=== PATIENT | male | born 1970 | race Caucasian/White ===

== ENCOUNTER 2017-08-31 18:06 | Emergency (ER) | payer OTHER ==
[2017-08-31] MEDS ORDERED: Take Home: Acetaminophen/Codeine 300 MG/30 MG, 5 Tab Pack PO ONE (18:44)
[2017-08-31] MEDS ORDERED: Take Home: Amoxicillin/Clavulanate K 875-125 MG Tab, 2 Tab Pack PO ONE (18:44)
--- NOTE | 2017-08-31 21:26 | EDM.PDOC ---
ED HPI GENERAL MEDICAL PROBLEM - General Chief Complaint: General Time Seen by Provider: 08/31/17 18:30 Source of Information: Reports: Patient History Limitations: Reports: No Limitations - History of Present Illness INITIAL COMMENTS - FREE TEXT/NARRATIVE: Pt. states that he has been experiencing intermittent L upper molar pain for several months. He states that over the past several days, the discomfort has increased in severity. He states he is not experiencing any fever or chills. No weakness. No difficulty swallowing or managing his secretions. 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 [No Known Home Meds] 08/31/17 [History] Past Medical History - Past Health History Medical/Surgical History: Denies Medical/Surgical History Social & Family History - Tobacco Use Smoking Status *Q: Unknown Ever Smoked - Recreational Drug Use Recreational Drug Use: No ED ROS GENERAL - Review of Systems Review Of Systems: Unable To Obtain ED EXAM, GENERAL - Physical Exam Exam: See Below Exam Limited By: No Limitations General Appearance: Alert, WD/WN, No Apparent Distress Ears: Normal External Exam, Normal Canal, Hearing Grossly Normal, Normal TMs Ear Exam: Bilateral Ear: Auricle Normal, Canal Normal, TM normal Nose: Normal Inspection, Normal Mucosa, No Blood Throat/Mouth: Normal Lips, No Airway Compromise, Other (large dental pipe to L upper molar with surrounding edema) Head: Atraumatic Neck: Normal Inspection, Supple, Non-Tender, Full Range of Motion Respiratory/Chest: No Respiratory Distress, Lungs Clear, Normal Breath Sounds, No Accessory Muscle Use, Chest Non-Tender Cardiovascular: Normal Peripheral Pulses, Regular Rate, Rhythm, No Edema, No Gallop, No JVD, No Murmur Course - Vital Signs Last Recorded V/S: Last Vital Signs Temp 36.6 C 08/31/17 18:25 Pulse 87 08/31/17 18:25 Resp 16 08/31/17 18:25 BP 146/73 H 08/31/17 18:25 Pulse Ox - Orders/Labs/Meds Meds: Medications Discontinued Medications Generic Name Dose Route Start Last Admin Trade Name Bety PRN Reason Stop Dose Admin Acetaminophen/Codeine Phosphate 2 packet 08/31/17 18:44 08/31/17 19:07 Take Home: Acetam/Codeine 300-30 Mg, 5 Pack PO 08/31/17 18:45 2 packet ONETIME ONE Administration Amoxicillin/Clavulanate Potassium 2 packet 08/31/17 18:44 08/31/17 19:07 Take Home: Amox/Clavulanate 875-12, 2 Tab Pac PO 08/31/17 18:45 2 packet ONETIME ONE Administration Departure - Departure Time of Disposition: 19:09 Disposition: Home, Self-Care 01 Condition: Good Clinical Impression: Dental infection - Discharge Information Instructions: Dental Abscess Referrals: Francheska David PA-C [Primary Care Provider] - Forms: ED Department Discharge Additional Instructions: Augmentin 875mg twice daily for 10 days Ibuprofen 800mg every 8 hours Tylenol #3 1 tablet every 6 hours. Do not take addition Tylenol if taking tylenol #3. Use tylenol #3 sparingly of the ibuprofen isn't helping [employer] [id number] [place] [id number] [place] [phone]
== END 2017-08-31 19:09 | disposition home or self-care (01) ==
LOC: VM.ED 18:06
DX: K04.7 Periapical abscess without sinus (principal); K02.9 Dental caries, unspecified
CPT/HCPCS: 99282; A9270; 99283-GF

== ENCOUNTER 2019-03-16 15:06 | Emergency (ER) | payer OTHER ==
--- NOTE | 2019-03-16 15:32 | EDM.PDOC ---
ED HPI GENERAL MEDICAL PROBLEM - General Chief Complaint: Laceration Stated Complaint: INJURY ON TOP OF HIS HEAD Time Seen by Provider: 03/16/19 15:15 Source of Information: Reports: Patient History Limitations: Reports: No Limitations - History of Present Illness INITIAL COMMENTS - FREE TEXT/NARRATIVE: Patient comes into the emergency department with complaint of laceration to his head. Patient states that he was at work and was bent over, when he went to stand up he thought the object above his head was further behind him however he hit the metal object on the center of his head causing a laceration. He denies any loss of consciousness, and dizziness, blurred vision, ringing in the ears, head pain, nausea or vomiting, or numbness and tingling. He states he is able to control the bleed with minimal pressure. Transported by a fellow coworker. Patient denies any other concerns or complaints Onset: Sudden Quality: Reports: Other Severity: Mild Improves with: Reports: None Worsens with: Reports: None Associated Symptoms: Reports: No Other Symptoms - Related Data Allergies Allergy/AdvReac Type Severity Reaction Status Date / Time No Known Allergies Allergy Verified 08/31/17 18:40 Home Meds: Home Meds . [No Known Home Meds] 08/31/17 [History] Past Medical History - Past Health History Medical/Surgical History: Denies Medical/Surgical History ED ROS GENERAL - Review of Systems Review Of Systems: ROS reveals no pertinent complaints other than HPI. Constitutional: Reports: No Symptoms HEENT: Reports: No Symptoms Respiratory: Reports: No Symptoms Cardiovascular: Reports: No Symptoms GI/Abdominal: Reports: No Symptoms : Reports: No Symptoms Musculoskeletal: Reports: No Symptoms ED EXAM, GENERAL - Physical Exam Exam: See Below Exam Limited By: No Limitations General Appearance: Alert, WD/WN, No Apparent Distress Eye Exam: Bilateral Eye: EOMI, PERRL Ears: Normal External Exam, Normal Canal, Hearing Grossly Normal, Normal TMs Ear Exam: Bilateral Ear: Auricle Normal, Canal Normal, TM normal Nose: Normal Inspection, Normal Mucosa, No Blood Head: Other (laceration noted. bleeding controlled) Neck: Normal Inspection, Supple, Non-Tender Respiratory/Chest: No Respiratory Distress, No Accessory Muscle Use Cardiovascular: Normal Peripheral Pulses, No Edema Extremities: Normal Inspection, Non-Tender, No Pedal Edema Neurological: Alert, Oriented, Normal Cognition, Normal Gait, No Motor/Sensory Deficits Psychiatric: Normal Affect, Normal Mood Skin Exam: Warm, Dry, Intact, Normal Color ED GENERAL MEDICAL PROCEDURES - Laceration/Wound Repair Middle Anterior Head Appearance: Linear, Clean Distal NVT: Neuro & Vascular Intact, No Tendon Injury Skin Prep: Chlorhexidine (Hibiciens), Sterile Drape Exploration/Debridement/Repair: No Foreign Material Found Closed with: Morris # of Sutures: 5 (rafy) Suture Type: Other Sterile Dressing Applied: Nurse Tetanus Status Addressed: Yes Complications: No Departure - Departure Time of Disposition: 15:30 Disposition: Home, Self-Care 01 Condition: Good Clinical Impression: Laceration - Discharge Information *PRESCRIPTION DRUG MONITORING PROGRAM REVIEWED*: Not Applicable *COPY OF PRESCRIPTION DRUG MONITORING REPORT IN PATIENT NIKOLAS: Not Applicable Instructions: Stitches, Rafy, or Adhesive Wound Closure, [id number] Forms: ED Department Discharge Additional Instructions: 1. keep the area clean and dry 2. avoid soiled material on wound until healed 3. Can leave open to the air but keep covered if outside or in dirt 4. Can use soap and water on the scalp but avoid for the first 24 hours 5. Return to the clinic in 7-10 days for evaluation and staple removal 6. Activity and diet as tolerated 7. Follow up with PCP if wound becomes infected or signs of infection arise 8. Call with any questions or concerns - Problem List Review Problem List Initiated/Reviewed/Updated: Yes - Assessment/Plan Assessment:: 1. laceration Plan: 1. wound cleansing completed 2. Rafy completed to wound 3. Tetanus completed within 5 years according to nursing. 4. Wound dressing completed after rafy 5. Education regarding follow up, wound care, activity, diet, and OTC pain management provided 6. All questions and concerns addressed prior to discharge.
== END 2019-03-16 15:35 | disposition home or self-care (01) ==
LOC: VM.ED 15:06
DX: S01.01XA Laceration without foreign body of scalp, initial encounter (principal); W22.8XXA Striking against or struck by other objects, initial encounter; Y99.0 Civilian activity done for income or pay
CPT/HCPCS: 12001; 99283